=== PATIENT | male | born 1945 | race Hispanic/Latino ===

== ENCOUNTER 2019-11-25 11:46 | Inpatient (IN) | payer MEDICARE, OTHER ==
[2019-11-25] MEDS ORDERED: Nitroglycerin 2% Ointment 1 INCH/1 GM Packet ONE (12:02)
[2019-11-25] MEDS ORDERED: Heparin 10,000 UNITS/1 ML VIAL ONE ×2 (12:06→13:16)
[2019-11-25 12:12] LABS: #Eosinphils 0.2 thou/uL (0.0-0.7); #Lymphocytes 2.2 thou/uL (1.20-3.40); #Monocytes 0.6 thou/uL (0.11-0.59); #Neutrophils 4.6 thou/uL (1.40-6.50); %Basophils 0.6 % (0.0-1.0); %Eosinophils 2.1 % (0.0-10.0); %Monocytes 8.2 % (0.0-10.0); %Neutrophils 60.1 % (42.0-75.0); Hemoglobin 16.3 g/dL (14.0-18.0); Mean Corpuscular HGB CONC 33.3 g/dL (32.0-36.0); Mean Corpuscular Hemoglobin 30.5 pg (27.0-31.0); Mean Corpuscular Volume 91.6 fL (78.0-98.0); Mean Platelet Volume 9.2 fL (7.4-10.4); Platelet Count 182 thou/uL (130-400); RBC Distribution Width 13.2 % (11.5-14.5); Red Blood Cell (RBC) Count 5.34 mill/uL (4.70-6.10); White Blood Cell (WBC) Count 7.6 thou/uL (4.8-10.8)
[2019-11-25] MEDS ORDERED: Iopamidol 370 76% 50 ML VIAL FS ONE (12:21)
[2019-11-25] MEDS ORDERED: Iopamidol 370 76% 100 ML VIAL ONE (12:21)
[2019-11-25 12:30] LABS: ALT (SGPT) 23 U/L (8-55); AST (SGOT) 16 U/L (5-34); Albumin 4.4 g/dL (3.4-4.8); Alkaline Phosphatase 113 U/L (40-110); Anion Gap 17 mmol/L (10-20); BUN (Urea Nitrogen) 14 mg/dL (8.4-25.7); Bilirubin, Total 0.7 mg/dL (0.2-1.2); CK (CPK) 82 U/L (30-200); Calc. Creatinine Clearance 0 mL/min (70-130); Calcium 9.2 mg/dL (7.8-10.44); Carbon Dioxide 24 mmol/L (23-31); Chloride 105 mmol/L (98-107); Estimated GFR-MDRD 81; Globulin 3.3 g/dL (2.4-3.5); Glucose 101 mg/dL (83-110); INR-International Normal Ratio 0.9; Lipase 15 U/L (8-78); PTT 27.6 SEC (22.9-36.1); Potassium 3.5 mmol/L (3.5-5.1); Protein, Total 7.7 g/dL (5.8-8.1); Prothrombin Time 12.1 SEC (12.0-14.7); Sodium 142 mmol/L (136-145)
--- NOTE | 2019-11-25 12:39 | RAD ---
SINGLE VIEW CHEST: HISTORY: Chest pain that radiates to the back and left arm. FINDINGS: Single view of the chest show normal sized cardiomediastinal silhouette. There is no evidence of cons olidation, mass, or pleural effusion. The bones are unremarkable. IMPRESSION: No evidence of acute cardiopulmonary disease. POS: C
[2019-11-25] MEDS ORDERED: Clopidogrel Bisulfate 300 MG TAB ONE (12:50)
[2019-11-25] MEDS ORDERED: Aspirin Chewable 81 MG TAB ONE (13:24)
[2019-11-25] MEDS ORDERED: Sodium Chloride 0.9% 1,000 ML BAG ONE (13:24)
[2019-11-25] MEDS ORDERED: Nitroglycerin 50 MG/250 ML BOT ONE (13:24)
[2019-11-25] MEDS ORDERED: Tenecteplase 50 MG - STEMI KIT ONE (13:24)
[2019-11-25] MEDS ORDERED: Nitroglycerin 0.4 MG TAB (25 Tab Bottle) SL PRN (13:49)
[2019-11-25] MEDS ORDERED: Morphine 2 MG/ML SYRINGE SLOW IVP PRN (13:49)
[2019-11-25] MEDS ORDERED: Sodium Chloride 0.9% 1,000 ML IV SCH (13:49)
[2019-11-25] MEDS ORDERED: Aspirin 81 mg Enteric Coated Tablet PO SCH (14:00)
[2019-11-25 14:05] VITALS: BMI 33.7
--- NOTE | 2019-11-25 16:37 | CON ---
DATE OF CONSULTATION: HISTORY OF PRESENT ILLNESS: Ángel Perkins is a 74-year-old male , who denies any previous cardiac problems. He denies any previous chest discomfort. Today, he was driving and he had onset of central chest pressure and tightness approximately 1 hour prior to when I saw him in the emergency room. He came to the emergency room and was given sublingual nitroglycerin, 4000 of heparin and started on a heparin drip. He denies any shortness of breath, nausea, vomiting, or diaphoresis with this discomfort. PAST MEDICAL HISTORY: Hypertension and hypercholesterolemia. He states he was diagnosed with diabetes 1 year ago. He does not take any medications for any of these problems and states that he controls them all with diet. MEDICATIONS: Omeprazole 20 mg daily. ALLERGIES: ASPIRIN CAUSES NAUSEA AND DIAPHORESIS. IT DOES NOT SOUND IF HE HAS SHORTNESS OF BREATH OR HIVES, BUT THIS WILL BE FURTHER DISCUSSED WITH HIM. SOCIAL HISTORY: Smoked 3 packs per day, but stopped in 1993. He does not drink. FAMILY HISTORY: Father of myocardial infarction in his 60s. REVIEW OF SYSTEMS: A 12-point review of systems was unremarkable. PHYSICAL EXAMINATION: VITAL SIGNS: Blood pressure 159/90 and pulse of 80. HEENT: PERRL. NECK: Supple. CHEST: Clear. CARDIAC: S1 and S2 normal without any S3, S4, or murmurs. Carotid upstrokes normal without bruits. ABDOMEN: Normal bowel sounds without tenderness or organomegaly. EXTREMITIES: Revealed no clubbing, cyanosis, or edema. NEUROLOGIC: Grossly intact. SKIN: Warm and dry. IMAGING STUDIES: EKG revealed [address]-segment elevation in I and L consistent with lateral STEMI. LABORATORY DATA: CBC is normal. No other blood work is available. IMPRESSION: 1. High lateral ST-elevation myocardial infarction. 2. Hypertension, untreated. 3. Diabetes, untreated. 4. Hypercholesterolemia, untreated. 5. Former smoker. 6. Positive family history. PLAN: The situation was discussed with the patient. It was recommend he undergo emergent cardiac catheterization. Risks of this were discussed including , myocardial infarction, dye reaction, vascular injury, CVA, transfusion, limb loss, renal loss, etc. Also, risk of intervention with PTCA and stent placement were discussed including , myocardial infarction, emergent CABG, restenosis, stent thrombosis, vessel perforation, etc. He understands and agrees to proceed. He devyn any history of GI bleeding, CVA or upcoming surgeries. Drug eluting stent will be placed unless he has the need for CABG. ADDENDUM: Upon further discussion with him regarding his aspirin allergy, he received some type of combination medicine for pain after he broke his wrist in the . After taking that medicine, he became diaphoretic and states that he was shaking. However, he denies having any rash, hives, itching, or shortness of breath with that and I doubt that he has a true aspirin allergy. Job ID: [id number] [facility]
[2019-11-25 18:54] LABS: CKMB 126.1 ng/mL (0-6.6)
[2019-11-25] MEDS: Ondansetron PF 4 MG/2 ML Vial SLOW IVP PRN (19:26)
[2019-11-25] MEDS: Metoprolol Tartrate 25 MG TAB PO SCH (21:07)
[2019-11-26 00:29] LABS: Critical Call Chem Troponin I RESULT DECREASING
[2019-11-26 00:50] LABS: CKMB 88.9 ng/mL (0-6.6); Critical Call CKMB RESULT DECREASING
[2019-11-26] MEDS: Ondansetron PF 4 MG/2 ML Vial SLOW IVP PRN ×4 (01:16→20:46)
[2019-11-26 03:40] LABS: #Lymphocytes 0.7 thou/uL (1.20-3.40); #Monocytes 0.5 thou/uL (0.11-0.59); #Neutrophils 8.1 thou/uL (1.40-6.50); %Basophils 0.2 % (0.0-1.0); %Eosinophils 0.2 % (0.0-10.0); %Lymphocytes 7.3 % (21.0-51.0); %Monocytes 5.7 % (0.0-10.0); %Neutrophils 86.6 % (42.0-75.0); Hemoglobin 14.8 g/dL (14.0-18.0); Mean Corpuscular HGB CONC 33.3 g/dL (32.0-36.0); Mean Corpuscular Hemoglobin 30.2 pg (27.0-31.0); Mean Corpuscular Volume 90.7 fL (78.0-98.0); Mean Platelet Volume 8.8 fL (7.4-10.4); Platelet Count 173 thou/uL (130-400); RBC Distribution Width 12.9 % (11.5-14.5); White Blood Cell (WBC) Count 9.3 thou/uL (4.8-10.8)
[2019-11-26 03:47] LABS: Hemoglobin A1c 6.1 % (4.0-6.0)
[2019-11-26 04:00] LABS: ALT (SGPT) 33 U/L (8-55); AST (SGOT) 86 U/L (5-34); Albumin 3.8 g/dL (3.4-4.8); Alkaline Phosphatase 100 U/L (40-110); Anion Gap 12 mmol/L (10-20); BUN (Urea Nitrogen) 12 mg/dL (8.4-25.7); Bilirubin, Total 0.9 mg/dL (0.2-1.2); Calc. Creatinine Clearance 93 mL/min (70-130); Calcium 8.6 mg/dL (7.8-10.44); Carbon Dioxide 24 mmol/L (23-31); Cardiac Risk 5.1 (Less than 4.5); Chloride 106 mmol/L (98-107); Cholesterol 202 mg/dl (< 200 Desired); Estimated GFR-MDRD Greater than 90; Globulin 2.9 g/dL (2.4-3.5); Glucose 141 mg/dL (83-110); HDL Cholesterol 40 mg/dL (>60 Neg Risk); LDL Cholesterol, Calculated 142 mg/dL; Potassium 3.6 mmol/L (3.5-5.1); Protein, Total 6.7 g/dL (5.8-8.1); Sodium 138 mmol/L (136-145); Triglycerides 101 mg/dL (Less than 150)
[2019-11-26] MEDS ORDERED: Milk Of Magnesia 30 ML UDCUP PO PRN (08:31)
[2019-11-26] MEDS: Docusate 100 MG CAP PO SCH ×2 (08:44→20:06)
[2019-11-26] MEDS: Metoprolol Tartrate 25 MG TAB PO SCH ×2 (08:44→20:06)
[2019-11-26] MEDS ORDERED: Clopidogrel Bisulfate 75 MG TAB PO SCH (09:00)
[2019-11-26] MEDS ORDERED: Aspirin Chewable 81 MG TAB PO SCH (09:00)
[2019-11-26] MEDS ORDERED: Prevnar 13-Val Conj/PF 0.5 ML SYRINGE IM ONE (09:00)
[2019-11-26] MEDS ORDERED: Communication Order-Pharmacy FS ONE (11:18)
--- NOTE | 2019-11-26 12:42 | CON ---
DATE OF CONSULTATION: 11/26/2019 REQUESTING PHYSICIAN: Zion Fonseca MD CHIEF COMPLAINT: Chest pain. HISTORY OF PRESENT ILLNESS: The patient is a 74-year-old man who manages his hypertension and diabetes with dietary manipulations and supplements, such as garlic. He had onset of chest pressure in the center of his chest. He had a bit of shortness of breath when he presented to the emergency room. He had slight elevation in ST segments laterally, but a negative troponin. He was taken emergently to the cardiac incinerator plant laborer where he was found to have 3-vessel coronary artery disease, particularly severe in his left-sided system. He had a rather high trifurcated diagonal with a very high-grade lesion in it, that was deemed the culprit vessel and that was stented using a bare-metal stent. During the procedure, he was loaded with 600 mg of Plavix. He has not had any recurrence of chest pain since. PAST MEDICAL HISTORY: Significant for: 1. Hypertension. 2. Diabetes. 3. GE reflux. MEDICATIONS: His only home medication is Prilosec. ALLERGIES: HE HAS NO KNOWN ALLERGIES. HE INITIALLY DESCRIBED AN ASPIRIN ALLERGY, BUT ON FURTHER QUESTIONING, MANY YEARS AGO HE RECEIVED COMBINED FORMULATION THAT CONTAIN ASPIRIN AFTER A BROKEN WRIST, AND AFTERWARDS HE BECAME DIAPHORETIC AND HAD SOME SHAKING, BUT DID NOT HAVE ANY RASH, ITCHING, SHORTNESS OF BREATH, OR ANY WHEEZING. HE HAS SINCE BEEN ON BABY ASPIRIN IN THE HOSPITAL WITHOUT ANY ADVERSE EFFECT. SOCIAL HISTORY: The patient quit smoking in the mid 90s. While in the , he smoked up to 5 packs of cigarettes a day, and up until the time he quit, he smoked about 3 packs of cigarettes a day. FAMILY HISTORY: His father of heart attack in his mid 60s. His mother of heart attack in her mid 70s. REVIEW OF SYSTEMS: Negative for any shortness of breath. Negative for any eye, speech, facial, or extremity symptoms, consistent with TIAs. Negative for any claudication symptoms. Positive for paresthesias in his feet. PHYSICAL EXAMINATION: GENERAL: He is 5 feet 2 inches and weighs 184-1/4 pounds. In the emergency room at presentation, his heart rate was 90 and blood pressure was 179/110, and room air sats of 98%. Currently, his heart rates have mostly been in the 60 to 70 range, blood pressure of 110 to 125 over 65 to 75, T-max in this hospitalization has been 98.5, and his room air O2 sats currently are 97%. HEENT: He has no xanthelasma. No JVD. No carotid bruits. CHEST: Clear to auscultation. HEART: He has a regular rate and rhythm. ABDOMEN: Soft and nontender without any masses or bruits. VASCULAR: He has palpable radial, femoral, and posterior tibial pulses bilaterally. I was not able to appreciate dorsalis pedis pulses. He has some spider type varicosities and some venous stasis changes at the ankles. He has no clubbing, cyanosis, or edema. NEUROLOGIC: Grossly nonfocal. LABORATORY DATA: White count of 7.6, hemoglobin is 16.3, hematocrit 49.0, and platelets 182,000. PT was 12.1, INR 0.9, and PTT 27.6. His electrolytes were normal. Glucose 101, BUN 14, and creatinine 0.91. Hemoglobin A1c was 6.1. Calcium is 9.2, albumin 4.4, bilirubin 0.7, alkaline phosphatase was 113 and upper limit of normal being 110, AST was 16, and ALT was 23. Repeat LFTs, he had a bilirubin 0.9, alkaline phosphatase of 100, AST of 86, and ALT of 33. Fasting lipids were triglycerides 101, cholesterol of 202, LDL 142, HDL of 40. His troponin initially was undetectable, about 5 hours after his stenting, his troponin is 48.618 and about 6 hours after that was 23.588. His chest x-ray shows some slightly prominent markings with either some vessels on and/or granulomata. His EKG showed minimal ST elevation laterally and he had some inferior ST depression. He developed inverted T-waves in the precordial leads. His cardiac catheterization shows a right-dominant system. He has 2 diagonals that come off prior to the first septal haul driver. The second diagonal was the trifurcated vessel that was stented. All three branches are relatively small, although the stented segment is reasonably good size. There are 2 septal perforators after that and starting at about the first septal haul driver, there was an area of irregularity with significant disease in one of the injections. During the stenting procedure, it appears to come down to perhaps around 90% lesion in a little bit beyond the 2nd septal haul driver. There are hang up of dye that is slow to clear in the LAD. There is about 95% or greater lesion in a large 2nd obtuse marginal, and there is serial 50 or even 60% lesions in the proximal mid and distal right coronary. LVEF is around 50% or 60%. LV pressure was 99/10 with an EDP of 16. Aortic pressure on pullback was 110/61 with a mean of 83. IMPRESSION AND RECOMMENDATIONS: Anatomically, my biggest concern is the severity of disease in the 2nd obtuse marginal and in the left anterior descending, particularly given the slow clearance of dye in the left anterior descending beyond its lesion and it may be problematic trying to keep him medically stable for the typical month or 2 that we would wait after bare-metal stenting so that we could do his procedure off Plavix. Additionally, there is an issue about this patient's reluctance to take medications and his reliability, putting that in the context of our current pandemic constraints, there is considerable concern that he will be lost to follow up and wind up having a more serious MO in his left anterior descending or circumflex distributions. We will plan on coronary artery bypass grafting and anticipate transfusing platelets to achieve hemostasis post pump run. Job ID: [id number]
[2019-11-26] MEDS ORDERED: Atorvastatin Calcium 40 MG TAB PO SCH (21:00)
[2019-11-27] MEDS: Metoprolol Tartrate 25 MG TAB PO SCH (05:57)
[2019-11-27] MEDS ORDERED: Fentanyl 250 MCG/5 ML VIAL ONE (06:12)
[2019-11-27] MEDS ORDERED: Midazolam HCl 5 mg/5 ml Vial ONE (06:13)
[2019-11-27] MEDS ORDERED: Albumin 5% 500 ML ONE (06:30)
[2019-11-27] MEDS ORDERED: CEFAZOLIN 2 GM in Premix Bag 1 BAG IVPB SCH (07:15)
[2019-11-27] MEDS ORDERED: Heparin 10,000 UNITS/1 ML VIAL 30,000 UNITS in Sodium Chloride 0.9% 1,000 ML FS SCH (07:30)
[2019-11-27] MEDS ORDERED: hydrALAZINE 20 MG/ML VIAL SLOW IVP PRN (07:34)
[2019-11-27] MEDS ORDERED: Post-Op Insulin Drip Protocol IVPB SCH (07:34)
[2019-11-27] MEDS ORDERED: Hetastarch 6% 500 ML 500 ML IVPB PRN (07:34)
[2019-11-27] MEDS ORDERED: Promethazine HCl 25 MG/ML VIAL IM PRN (07:34)
[2019-11-27] MEDS ORDERED: Bisacodyl 5 MG TAB PO PRN (07:34)
[2019-11-27] MEDS ORDERED: Guaifenesin DM 100-10/5 ML UDCUP PO PRN (07:34)
[2019-11-27] MEDS ORDERED: HYDROcodone/Acetaminophen 5/325 mg Tablet PO PRN (07:34)
[2019-11-27] MEDS ORDERED: Ondansetron PF 4 MG/2 ML Vial IVP PRN (07:34)
[2019-11-27] MEDS ORDERED: Mag-Al 1200 mg/1200 mg/30 ML UDCUP PO PRN (07:34)
[2019-11-27] MEDS ORDERED: Acetaminophen 325 MG TAB PO PRN (07:34)
[2019-11-27] MEDS ORDERED: Bisacodyl 10 MG SUPP PR PRN (07:34)
[2019-11-27] MEDS ORDERED: niCARdipine 25 MG in Sodium Chloride 0.9% 250 ML 240 ML IVPB PRN (07:34)
[2019-11-27] MEDS ORDERED: Norepinephrine 8 MG/0.9% NS 250 ML IVPB PRN (07:34)
[2019-11-27] MEDS ORDERED: Morphine 2 MG/ML SYRINGE SLOW IVP PRN (07:34)
[2019-11-27] MEDS ORDERED: Nitroglycerin 50 MG/250 ML BOT 250 ML IVPB PRN (07:34)
[2019-11-27] MEDS ORDERED: Fentanyl 100 MCG/2 ML VIAL SLOW IVP PRN ×2 (07:34)
[2019-11-27] MEDS: Sodium Chloride 0.9% 1,000 ML IV SCH ×2 (07:52→12:24)
[2019-11-27] MEDS: Famotidine/PF 20 mg/2ml Vial SLOW IVP SCH ×2 (07:53→19:47)
[2019-11-27] MEDS ORDERED: PHENYLEPHRINE-NS 100 MCG/ML 10 ML SYRINGE ONE ×2 (09:38→11:57)
[2019-11-27] MEDS ORDERED: CEFAZOLIN 1 GM VIAL ONE (09:56)
[2019-11-27] MEDS ORDERED: Aminocaproic Acid 5 GM/20 ML VIAL ONE (11:57)
[2019-11-27] MEDS ORDERED: Papaverine 60 MG/2 ML VIAL ONE (11:57)
[2019-11-27] MEDS ORDERED: PROPOFOL 200 MG/20 ML VIAL ONE (11:57)
[2019-11-27] MEDS ORDERED: Rocuronium Bromide 10 MG/ML (10ML VIAL) ONE (11:57)
[2019-11-27] MEDS ORDERED: Heparin 30,000 units/30 ml VIAL ONE (11:57)
[2019-11-27] MEDS ORDERED: Sodium Bicarb 50 MEQ/50 ML Abboject 8.4% SYRINGE ONE (11:57)
[2019-11-27] MEDS ORDERED: Lidocaine 2% PF 5 ML VIAL ONE (11:57)
[2019-11-27] MEDS ORDERED: Cardioplegic Soln 1,000 ML BAG ONE (11:57)
[2019-11-27] MEDS ORDERED: Protamine Sulfate 250 MG/25 ML VIAL ONE (11:57)
[2019-11-27] MEDS ORDERED: Thrombin 5000 UNITS/5 ML VIAL ONE (11:57)
[2019-11-27] MEDS ORDERED: Potassium Chloride 60 MEQ/30 ML VIAL ONE (11:57)
[2019-11-27] MEDS ORDERED: Calcium Chloride 1 GM/10 ML Abboject SYRINGE ONE (11:57)
[2019-11-27] MEDS ORDERED: Magnesium Sulfate 1 GM/2 ML VIAL ONE (11:57)
[2019-11-27] MEDS ORDERED: Heparin 5,000 UNITS/ML VIAL ONE (11:57)
[2019-11-27] MEDS ORDERED: Vecuronium 10 MG VIAL ONE (11:57)
[2019-11-27] MEDS ORDERED: HUMULIN R 100 UNITS in Sodium Chloride 0.9% 100 ML IVPB SCH (12:04)
[2019-11-27] MEDS ORDERED: Insulin Regular 300 UNITS/3 ML VIAL SC PRN (12:04)
[2019-11-27] MEDS ORDERED: Dextrose 5% in Water 1,000 ML IV PRN (12:04)
[2019-11-27] MEDS ORDERED: Dextrose 50% Abboject 50 ML SYRINGE SLOW IVP PRN (12:04)
[2019-11-27] MEDS: Ketorolac Tromethamine 30 MG/ML VIAL IVP SCH ×2 (12:22→18:13)
[2019-11-27 12:28] LABS: #Eosinphils 0.1 thou/uL (0.0-0.7); #Lymphocytes 0.7 thou/uL (1.20-3.40); #Monocytes 1.1 thou/uL (0.11-0.59); %Basophils 0.1 % (0.0-1.0); %Eosinophils 0.7 % (0.0-10.0); %Lymphocytes 4.2 % (21.0-51.0); %Monocytes 6.7 % (0.0-10.0); %Neutrophils 88.2 % (42.0-75.0); Hemoglobin 11.4 g/dL (14.0-18.0); Mean Corpuscular Hemoglobin 30.5 pg (27.0-31.0); Mean Corpuscular Volume 92.4 fL (78.0-98.0); Mean Platelet Volume 8.4 fL (7.4-10.4); Platelet Count 127 thou/uL (130-400); RBC Distribution Width 12.9 % (11.5-14.5); Red Blood Cell (RBC) Count 3.73 mill/uL (4.70-6.10); White Blood Cell (WBC) Count 17.1 thou/uL (4.8-10.8)
[2019-11-27 12:32] LABS: INR-International Normal Ratio 1.4; PTT 27.9 SEC (22.9-36.1); Prothrombin Time 16.9 SEC (12.0-14.7)
[2019-11-27 12:39] LABS: Actual Bicarbonate (HCO3a) 22.5 mEq/L (22-28); Base Excess (BEa) -2.3 mEq/L (-2.0 to +3.0); CO2 Tension 38.6 mmHg (35.0-45.0); Calcium, Ionized 1.08 mmol/L (1.12-1.30); Carboxyhemoglobin (COHb) 0.5 gm% (0.0-3.0); O2 Tension (PaO2) 88.5 mmHg (> 70.0); Potassium - ABG Lab 3.21 mmol/L (3.70-5.30); pH, Arterial 7.38 (7.35-7.45)
[2019-11-27 12:40] LABS: Puncture Site ART LINE
[2019-11-27 12:47] LABS: Anion Gap 9 mmol/L (10-20); BUN (Urea Nitrogen) 15 mg/dL (8.4-25.7); Calc. Creatinine Clearance 89 mL/min (70-130); Calcium 7.2 mg/dL (7.8-10.44); Carbon Dioxide 23 mmol/L (23-31); Chloride 113 mmol/L (98-107); Estimated GFR-MDRD Greater than 90; Glucose 163 mg/dL (83-110); Potassium 3.4 mmol/L (3.5-5.1); Sodium 142 mmol/L (136-145)
[2019-11-27] MEDS ORDERED: Norepinephrine 8 MG in Dextrose 5% in Water 242 ML IVPB PRN (12:47)
[2019-11-27 12:51] LABS: Potassium 3.4 mmol/L (3.5-5.1)
[2019-11-27] MEDS: Potassium Chloride 20 MEQ/100 ML PREMIX BAG IVPB PRN (12:57)
--- NOTE | 2019-11-27 13:18 | RAD ---
PORTABLE CHEST: Date: 11/27/2019 PROVIDED CLINICAL HISTORY: Post open heart. FINDINGS: Comparison with 11/25/2019. Interval median sternotomy change, left subclavian central line, mediastinal drains, and left-sided c hest tube. Cardiac and mediastinal silhouette unchanged in appearance. Presumed endotracheal tube, th e tip of which approximates the isaiah. Subsegmental atelectatic changes are seen involving the lung parenchyma. The supine nature of this study is not sensitive for detection of pleural fluid or pneumo thorax, without evidence for such. IMPRESSION: Support apparatus as described. Repositioning of the ET tube is recommended. POS: [facility]
--- NOTE | 2019-11-27 13:27 | OP ---
DATE OF PROCEDURE: 11/27/2019 PROCEDURE PERFORMED: Coronary artery bypass grafting x3 with left internal mammary artery to the distal left anterior descending and reverse greater saphenous vein graft from the aorta to the obtuse marginal 2 and from the aorta to the posterolateral branch of the right coronary artery. PREOPERATIVE DIAGNOSIS: Coronary artery disease, status post bare-metal stenting for lateral ST-elevation myocardial infarction. POSTOPERATIVE DIAGNOSIS: Coronary artery disease, status post bare-metal stenting for lateral ST-elevation myocardial infarction. BALLING HEAD TENDER: Savage Abebe MD ANESTHESIA: General endotracheal anesthesia. INDICATIONS: The patient is a 74-year-old man who presented with midsternal chest pain and had lateral ST elevation on his EKG. He was taken emergently to the mill laborer and a culprit high diagonal was stented using a bare metal stent because of the severity of his residual disease in his LAD and his circumflex system. It is opted to proceed with surgical revascularization during this hospitalization. FINDINGS: Pump time 72 minutes. Cross-clamp time 41 minutes. Good quality SHEELA and saphenous vein. All the coronaries were thick-walled and diffusely involved with leathery plaque. The LAD was 2 to 2.5 mm. The obtuse marginal was 2 to 2.5 mm. Posterolateral branch of the RCA was 1.5 to 2 mm. The pericardium was closed. DESCRIPTION OF PROCEDURE: After informed consent was obtained, the patient was taken to the operating room, placed in supine position on the operating table. After the induction of general anesthesia, the patient's left greater saphenous vein was ultrasonographically mapped and marked. He was placed in Trendelenburg and his left upper chest was prepped and draped in sterile fashion. A triple-lumen central line kit was used to place a left subclavian central line by the Seldinger technique. All 3 ports easily aspirated and flushed. The line was secured with suture. The patient's torso, groins, and lower extremities were prepped and draped in sterile fashion. The left greater saphenous vein was exposed through a small incision just above the knee using that as the port site. The patient's vein was endoscopically harvested from groin to about a handbreadth below the knee and prepared for use as a graft. The port site was closed in layers of subcutaneous and subcuticular Vicryl. The stab incisions were proximally and distally for ligation and division ultimately were dressed simply with Dermabond. A median sternotomy was performed. The left internal mammary artery was harvested as a skeletonized in-situ graft from the level of the xiphoid to the level of the subclavian vein unsuccessfully attempting an extrapleural exposure. Small rents amenable to repair were created inferiorly, but there was a large rent apically that was not amenable to repair. The patient was heparinized and the mammary was ligated and divided distally. There was good flow through the mammary and distended nicely when instilled intraluminally with papaverine solution. The mammary bed was inspected for hemostasis. The medial reflections of the pleura were mobilized. The SHEELA retractor was replaced with a Kraus retractor. The pericardium was opened and marsupialized. The aorta was palpated and was soft. A double concentric pursestring of 2-0 Ethibond was placed in ascending aorta just within the pericardial reflection and a single pursestring was placed in the right atrial appendage. Aortic and venous cannulae were inserted and secured by their pursestrings. There was some difficulty in cannulating using our standard 24-Citizen [place] cannula with an angled tip. An 18-Citizen [place] femoral arterial cannula was used instead. It proved to be due to the aortic wall being relatively thick, even though it was soft. Cardiopulmonary bypass was instituted and the patient was systemically cooled. The heart was examined and the vessels to be bypassed were identified. A longitudinal slit was made in the pericardium anterior to the left phrenic nerve, so mammary could be passed and hilar mobilization of the pericardium of the pleura to mimic an extrapleural exposure of the mammary was completed. The plane between the aorta and the pulmonary artery was developed. Cardiopulmonary bypass was instituted and the patient was systemically cooled. The heart was examined. The vessels to be bypassed were identified. An aortic cross-clamp was applied and cardioplegia was administered through an aortic root needle. When arrest have been achieved, attention was turned to the circumflex system. The second obtuse marginal was exposed and opened with a Mcneal blade and Diethrich scissors. Saphenous vein was reversed and anastomosed end-to-side with running 6-0 Prolene suture and the anastomosis tested by flushing cold cardioplegia down the graft. Attention was then turned to the right coronary. It was extensively explored and rather distally out on the posterolateral branch, where a transition to relatively good quality vessel was identified. The vessel was opened. Saphenous vein was anastomosed there end-to-side with running Prolene. Prior to securing the suture line, the toe of the anastomosis was probed with 1.5 mm probe, which passed easily. The LAD was then opened distally and the mammary was anastomosed to it with running 7-0 Prolene and tacked to the epicardium. The aortic cross-clamp was replaced with a partial occluding clamp. The aortotomies were then made in the ascending aorta with a scalpel and punch incorporating the root needle site for one of these aortotomies. It was at this point that the thickness of the aorta was appreciated. The right coronary system graft was anastomosed to the more proximal aortotomy and the OM graft to the more distal aortotomy. The partial occluding clamp was removed and the vein grafts were de-aired. The bulldogs were removed from them. The anastomoses were inspected for hemostasis. The proximal anastomoses were marked with small hemoclips. Left pleural and posterior pericardial drains were brought out through separate incisions and secured with suture. Right atrial and right ventricular temporary epicardial pacing wires were placed. The patient was then easily from cardiopulmonary bypass. Aortic and venous cannulae were removed and the pursestring secured. Protamine and platelets were administered to achieve hemostasis and when hemostasis was adequate, an anterior mediastinal drain was placed. The pericardium was easily closed over it with running Vicryl. The rent in the apical portion of the pleura was tacked together to insulate the mammary from the left lung. The cut surfaces of the sternum were treated with vancomycin paste and platelet-rich GPS. The sternum was reapproximated with #7 stainless steel wires. Fascia was closed over the wires with heavy Vicryl after irrigating the soft tissues and treating it with platelet poor GPS. Subcutaneous tissue was reapproximated with running 2-0 Vicryl, and the skin was closed with a running 3-0 Vicryl subcuticular suture. The wounds were treated with Dermabond and dressed and the patient was taken to the intensive care unit in stable condition. Job ID: [id number]
[2019-11-27 16:02] LABS: Base Excess (BEa) -1.9 mEq/L (-2.0 to +3.0); CO2 Tension 39.7 mmHg (35.0-45.0); Calcium, Ionized 1.07 mmol/L (1.12-1.30); Carboxyhemoglobin (COHb) 0.9 gm% (0.0-3.0); Hemoglobin (Hb) 11.9 g/dL (14.0-18.0); O2 Tension (PaO2) 91.2 mmHg (> 70.0); pH, Arterial 7.38 (7.35-7.45)
[2019-11-27 16:03] LABS: ALV-art Gradient 144.375 (0-20); Puncture Site ART LINE
[2019-11-27 18:40] LABS: Hemoglobin 11.2 g/dL (14.0-18.0)
[2019-11-27 18:56] LABS: Potassium 4.1 mmol/L (3.5-5.1)
[2019-11-28] MEDS: Ketorolac Tromethamine 30 MG/ML VIAL IVP SCH ×2 (00:21→05:45)
[2019-11-28] MEDS: Sodium Chloride 0.9% 1,000 ML IV SCH ×2 (00:30→12:51)
[2019-11-28 04:13] LABS: #Monocytes 1.3 thou/uL (0.11-0.59); #Neutrophils 8.8 thou/uL (1.40-6.50); %Basophils 0.4 % (0.0-1.0); %Eosinophils 0.1 % (0.0-10.0); %Monocytes 11.8 % (0.0-10.0); %Neutrophils 78.8 % (42.0-75.0); Hemoglobin 10.5 g/dL (14.0-18.0); Mean Corpuscular HGB CONC 33.8 g/dL (32.0-36.0); Mean Corpuscular Hemoglobin 30.9 pg (27.0-31.0); Mean Corpuscular Volume 91.4 fL (78.0-98.0); Mean Platelet Volume 8.9 fL (7.4-10.4); Platelet Count 141 thou/uL (130-400); RBC Distribution Width 12.9 % (11.5-14.5); Red Blood Cell (RBC) Count 3.38 mill/uL (4.70-6.10); White Blood Cell (WBC) Count 11.2 thou/uL (4.8-10.8)
[2019-11-28 04:32] LABS: Anion Gap 11 mmol/L (10-20); BUN (Urea Nitrogen) 18 mg/dL (8.4-25.7); Calc. Creatinine Clearance 85 mL/min (70-130); Calcium 7.5 mg/dL (7.8-10.44); Carbon Dioxide 25 mmol/L (23-31); Chloride 113 mmol/L (98-107); Estimated GFR-MDRD Greater than 90; Glucose 113 mg/dL (83-110); Potassium 3.6 mmol/L (3.5-5.1); Sodium 145 mmol/L (136-145)
[2019-11-28] MEDS: Potassium Chloride 20 MEQ/100 ML PREMIX BAG IVPB PRN (07:10)
--- NOTE | 2019-11-28 07:29 | RAD ---
SINGLE VIEW CHEST: Date: 11/28/2019 COMPARISON: 11/27/2019. HISTORY: Status post open heart surgery. FINDINGS: Single view of the chest shows an enlarged but stable cardiomediastinal silhouette. The patient is st atus post sternotomy. The endotracheal tube has been removed. The other lines and tubes are unchanged in position. No pneumothorax is seen. There is blunting of the left costophrenic angle which may rep resent a small left pleural effusion. IMPRESSION: Stable exam status post extubation. POS: [facility]
[2019-11-28] MEDS: HYDROcodone/Acetaminophen 5/325 mg Tablet PO PRN ×3 (08:21→20:29)
[2019-11-28] MEDS: Famotidine/PF 20 mg/2ml Vial SLOW IVP SCH (09:06)
[2019-11-28] MEDS ORDERED: Dextrose 50% Abboject 50 ML SYRINGE SLOW IVP PRN (09:30)
[2019-11-28] MEDS ORDERED: Dextrose 5% in Water 1,000 ML IV PRN (09:30)
[2019-11-28] MEDS ORDERED: Insulin Regular 300 UNITS/3 ML VIAL SC PRN (09:30)
[2019-11-28] MEDS ORDERED: Artificial Tears 18 DROP/0.9 ML EA EYE PRN (11:02)
[2019-11-28] MEDS ORDERED: Nitroglycerin 0.4 MG TAB (25 Tab Bottle) SL PRN (11:02)
[2019-11-28] MEDS ORDERED: Guaifenesin DM 100-10/5 ML UDCUP PO PRN (11:02)
[2019-11-28] MEDS ORDERED: Bisacodyl 10 MG SUPP PR PRN (11:02)
[2019-11-28] MEDS ORDERED: Zolpidem Tartrate 5 MG TAB PO PRN (11:02)
[2019-11-28] MEDS ORDERED: Mineral Oil ENEMA PR PRN (11:02)
[2019-11-28] MEDS ORDERED: Mag-Al 1200 mg/1200 mg/30 ML UDCUP PO PRN (11:02)
[2019-11-28] MEDS ORDERED: diphenhydrAMINE 25 MG CAP PO PRN (11:02)
[2019-11-28] MEDS: Metoclopramide HCl 10 MG/2 ML VIAL IVP SCH ×2 (12:51→18:03)
[2019-11-28] MEDS ORDERED: Amiodarone 150 MG, Admixture Fee 1 EACH in Dextrose 5% in Water 100 ML IVPB SCH (20:30)
[2019-11-28] MEDS: Atorvastatin Calcium 40 MG TAB PO SCH (20:30)
[2019-11-28] MEDS: Famotidine 20 MG TAB PO SCH (20:30)
[2019-11-28] MEDS: Amiodarone 450 MG, Admixture Fee 1 EACH in Dextrose 5% in Water 250 ML IVPB SCH (20:57)
[2019-11-28 21:04] LABS: ALT (SGPT) 20 U/L (8-55); AST (SGOT) 30 U/L (5-34); Albumin 3.4 g/dL (3.4-4.8); Alkaline Phosphatase 58 U/L (40-110); Bilirubin, Direct 0.5 mg/dL (0.1-0.3); Protein, Total 5.4 g/dL (5.8-8.1)
[2019-11-29] MEDS: Metoclopramide HCl 10 MG/2 ML VIAL IVP SCH ×4 (00:17→16:55)
[2019-11-29] MEDS: Sodium Chloride 0.9% 1,000 ML IV SCH (00:17)
[2019-11-29] MEDS: Amiodarone 450 MG, Admixture Fee 1 EACH in Dextrose 5% in Water 250 ML IVPB SCH ×2 (04:08→19:47)
[2019-11-29 04:58] LABS: #Lymphocytes 0.7 thou/uL (1.20-3.40); #Monocytes 1.1 thou/uL (0.11-0.59); #Neutrophils 12.3 thou/uL (1.40-6.50); %Basophils 0.1 % (0.0-1.0); %Eosinophils 0.1 % (0.0-10.0); %Lymphocytes 4.7 % (21.0-51.0); %Monocytes 7.9 % (0.0-10.0); %Neutrophils 87.2 % (42.0-75.0); Hemoglobin 9.9 g/dL (14.0-18.0); Mean Corpuscular HGB CONC 33.6 g/dL (32.0-36.0); Mean Corpuscular Hemoglobin 31.4 pg (27.0-31.0); Mean Corpuscular Volume 93.5 fL (78.0-98.0); Mean Platelet Volume 8.7 fL (7.4-10.4); Platelet Count 134 thou/uL (130-400); Red Blood Cell (RBC) Count 3.13 mill/uL (4.70-6.10); White Blood Cell (WBC) Count 14.1 thou/uL (4.8-10.8)
[2019-11-29 05:26] LABS: Anion Gap 12 mmol/L (10-20); BUN (Urea Nitrogen) 18 mg/dL (8.4-25.7); Calc. Creatinine Clearance 93 mL/min (70-130); Calcium 7.7 mg/dL (7.8-10.44); Carbon Dioxide 23 mmol/L (23-31); Chloride 108 mmol/L (98-107); Estimated GFR-MDRD Greater than 90; Glucose 145 mg/dL (83-110); Potassium 3.5 mmol/L (3.5-5.1); Sodium 139 mmol/L (136-145)
[2019-11-29] MEDS ORDERED: Metolazone 5 MG TAB PO SCH ×3 (07:15→10:00)
[2019-11-29] MEDS ORDERED: Metoprolol Tartrate 5 MG/5 ML VIAL IVP SCH (07:15)
[2019-11-29] MEDS ORDERED: Digoxin 0.5 MG/2 ML AMP SLOW IVP SCH ×4 (07:15→19:30)
--- NOTE | 2019-11-29 08:49 | RAD ---
PORTABLE CHEST 1 VIEW: DATE: 11/29/2019. TIME: 5:32 AM. HISTORY: Post CABG. FINDINGS: There has been interval removal of the left-sided chest tubes since the previous day's exam. The rem ainder of the exam is otherwise unchanged. POS: [facility]
[2019-11-29] MEDS: Famotidine 20 MG TAB PO SCH ×2 (09:32→19:40)
[2019-11-29] MEDS: Furosemide 40 MG/4 ML VIAL SLOW IVP SCH ×2 (10:40→15:43)
[2019-11-29] MEDS: Metoprolol Tartrate 25 MG TAB PO SCH ×2 (10:43→19:41)
--- NOTE | 2019-11-29 14:27 | EKG ---
Test Reason : POST CABG Blood Pressure : / mmHG Vent. Rate : 073 BPM Atrial Rate : 073 BPM P-R Int : 166 ms QRS Dur : 084 ms QT Int : 446 ms P-R-T Axes : 054 048 162 degrees QTc Int : 491 ms Normal sinus rhythm Prolonged QT Abnormal ECG Confirmed by SID HAYWOOD ([id number]) on 11/29/2019 2:27:31 PM Referred By: RUY Confirmed By:SID HAYWOOD
[2019-11-29] MEDS ORDERED: Amiodarone 150 MG, Admixture Fee 1 EACH in Dextrose 5% in Water 100 ML IVPB SCH (15:15)
[2019-11-29] MEDS ORDERED: DEXTROSE IVPB SCH (16:00)
[2019-11-29] MEDS ORDERED: ADMIXTURE FEE IVPB SCH (16:00)
[2019-11-29] MEDS ORDERED: WATER IVPB SCH (16:00)
[2019-11-29] MEDS ORDERED: AMIODARONE IVPB SCH (16:00)
[2019-11-29] MEDS: HYDROcodone/Acetaminophen 5/325 mg Tablet PO PRN (19:38)
[2019-11-29] MEDS: Atorvastatin Calcium 40 MG TAB PO SCH (19:41)
[2019-11-30] MEDS: Metoclopramide HCl 10 MG/2 ML VIAL IVP SCH ×2 (00:08→05:22)
[2019-11-30] MEDS ORDERED: Digoxin 0.5 MG/2 ML AMP SLOW IVP SCH (04:00)
[2019-11-30 05:07] LABS: Anion Gap 12 mmol/L (10-20); BUN (Urea Nitrogen) 18 mg/dL (8.4-25.7); Calc. Creatinine Clearance 86 mL/min (70-130); Calcium 8.3 mg/dL (7.8-10.44); Carbon Dioxide 31 mmol/L (23-31); Chloride 97 mmol/L (98-107); Estimated GFR-MDRD 84; Glucose 120 mg/dL (83-110); Potassium 3.2 mmol/L (3.5-5.1); Sodium 137 mmol/L (136-145)
[2019-11-30 05:43] LABS: Band 4 % (5-11); Hemoglobin 9.9 g/dL (14.0-18.0); Lymphocytes 17 % (21-51); MDiff Complete? YES; Mean Corpuscular HGB CONC 33.2 g/dL (32.0-36.0); Mean Corpuscular Hemoglobin 30.5 pg (27.0-31.0); Mean Platelet Volume 9.4 fL (7.4-10.4); Monocytes 7 % (0-10); Neutrophil 72 % (42-75); Platelet Count 157 thou/uL (130-400); Red Blood Cell (RBC) Count 3.23 mill/uL (4.70-6.10); White Blood Cell (WBC) Count 14.1 thou/uL (4.8-10.8)
--- NOTE | 2019-11-30 07:38 | RAD ---
Exam: Chest one view HISTORY:Status post CABG Comparison: 11/29/2019 FINDINGS: Lines and tubes: Stable left-sided vascular catheter. Stable sternotomy wires. Cardiac silhouette:Mild cardiomegaly Aorta: Unremarkable Pulmonary vessels: Normal Costophrenic angles: Trace left-sided pleural effusion LUNGS: Improved aeration of the lung parenchyma. Minimal residual interstitial opacities do remain. Pneumothorax: None Osseous abnormalities: None IMPRESSION: Findings compatible with recent open heart surgery.
--- NOTE | 2019-11-30 07:39 | EKG ---
Test Reason : Blood Pressure : / mmHG Vent. Rate : 076 BPM Atrial Rate : 076 BPM P-R Int : 170 ms QRS Dur : 082 ms QT Int : 352 ms P-R-T Axes : 051 029 -27 degrees QTc Int : 396 ms Normal sinus rhythm Nonspecific T wave abnormality Abnormal ECG No previous ECGs available Confirmed by HEAVENLY ADDISON MD ([id number]) on 11/30/2019 7:38:55 AM Referred By: CARIE Confirmed By:HEAVENLY ADDISON MD
--- NOTE | 2019-11-30 07:39 | EKG ---
Test Reason : Blood Pressure : / mmHG Vent. Rate : 066 BPM Atrial Rate : 066 BPM P-R Int : 178 ms QRS Dur : 080 ms QT Int : 428 ms P-R-T Axes : 063 064 222 degrees QTc Int : 448 ms Normal sinus rhythm Abnormal ECG When compared with ECG of 25-NOV-2019 14:07, (Unconfirmed) Inverted T waves have replaced nonspecific T wave abnormality in Anterolateral leads Confirmed by CYN ANGUIANO, HEAVENLY ([id number]) on 11/30/2019 7:39:14 AM Referred By: CARIE Confirmed By:HEAVENLY ADDISON MD
[2019-11-30] MEDS: Amiodarone 200 MG TAB PO SCH ×2 (08:04→20:16)
[2019-11-30] MEDS: Famotidine 20 MG TAB PO SCH (08:05)
[2019-11-30] MEDS: Metoprolol Tartrate 25 MG TAB PO SCH ×2 (08:05→20:16)
--- NOTE | 2019-11-30 14:20 | RAD ---
ABDOMEN 1 VIEW: Date: 11/30/2019 HISTORY: Nausea. FINDINGS/IMPRESSION: A nonspecific bowel gas pattern is seen with air in loops of colon. There is fecal material in the as cending colon. There are degenerative changes in the spine. POS: [facility]
[2019-11-30 14:25] LABS: Analyzer IN Cardio OR; Base Excess (BEa) -1.7 mEq/L (-2.0 to +3.0); CO2 Tension 38.2 mmHg (35.0-45.0); Calcium, Ionized 0.99 mmol/L (1.12-1.30); Carboxyhemoglobin (COHb) 0.8 gm% (0.0-3.0); Hemoglobin (Hb) 8.1 g/dL (14.0-18.0); Potassium - ABG Lab 3.58 mmol/L (3.70-5.30)
[2019-11-30 14:30] LABS: Actual Bicarbonate (HCO3v) 27 mEq/L (22-28); Analyzer IN Cardio OR; Calcium, Ionized 0.95 mmol/L (1.16-1.32); Chloride (ABG LAB) 109 mmol/L (98-106); Hemoglobin (Hb) 8.7 g/dL (12.6-17.4); Potassium - ABG Lab 4.02 mmol/L (3.70-5.30); Sodium 136.9 mmol/L (133-146); pH (venous) 7.37 (7.32-7.43)
[2019-11-30 14:32] LABS: Actual Bicarbonate (HCO3a) 25.8 mEq/L (22-28); Analyzer IN Cardio OR; Base Excess (BEa) 0.9 mEq/L (-2.0 to +3.0); CO2 Tension 42.5 mmHg (35.0-45.0); Calcium, Ionized 0.93 mmol/L (1.12-1.30); Carboxyhemoglobin (COHb) 0.6 gm% (0.0-3.0); Hemoglobin (Hb) 8.5 g/dL (14.0-18.0); O2 Tension (PaO2) 386.6 mmHg (> 70.0); Potassium - ABG Lab 3.91 mmol/L (3.70-5.30)
[2019-11-30 14:32] LABS: Actual Bicarbonate (HCO3a) 25.3 mEq/L (22-28); Analyzer IN Cardio OR; Base Excess (BEa) 2.1 mEq/L (-2.0 to +3.0); CO2 Tension 33.6 mmHg (35.0-45.0); Calcium, Ionized 0.91 mmol/L (1.12-1.30); Carboxyhemoglobin (COHb) 0.6 gm% (0.0-3.0); Hemoglobin (Hb) 7.9 g/dL (14.0-18.0); O2 Tension (PaO2) 384.3 mmHg (> 70.0); Potassium - ABG Lab 4.29 mmol/L (3.70-5.30)
[2019-11-30 14:33] LABS: Actual Bicarbonate (HCO3a) 23.9 mEq/L (22-28); Analyzer IN Cardio OR; CO2 Tension 33.1 mmHg (35.0-45.0); Calcium, Ionized 1.09 mmol/L (1.12-1.30); Carboxyhemoglobin (COHb) 1.3 gm% (0.0-3.0); Hemoglobin (Hb) 13.1 g/dL (14.0-18.0); O2 Tension (PaO2) 136.4 mmHg (> 70.0); Potassium - ABG Lab 3.27 mmol/L (3.70-5.30); Puncture Site ALINE; pH, Arterial 7.48 (7.35-7.45)
[2019-11-30 14:33] LABS: Actual Bicarbonate (HCO3a) 22.9 mEq/L (22-28); Analyzer IN Cardio OR; Base Excess (BEa) -1.1 mEq/L (-2.0 to +3.0); Calcium, Ionized 1.03 mmol/L (1.12-1.30); Carboxyhemoglobin (COHb) 0.4 gm% (0.0-3.0); Hemoglobin (Hb) 11.7 g/dL (14.0-18.0); O2 Tension (PaO2) 175.1 mmHg (> 70.0); Potassium - ABG Lab 3.38 mmol/L (3.70-5.30); pH, Arterial 7.42 (7.35-7.45)
[2019-11-30] MEDS ORDERED: Aspirin Chewable 81 MG TAB PO SCH (14:45)
[2019-11-30] MEDS: Atorvastatin Calcium 40 MG TAB PO SCH (20:16)
[2019-12-01 04:59] LABS: #Eosinphils 0.1 thou/uL (0.0-0.7); #Lymphocytes 0.8 thou/uL (1.20-3.40); #Monocytes 0.8 thou/uL (0.11-0.59); #Neutrophils 9.8 thou/uL (1.40-6.50); %Basophils 0.2 % (0.0-1.0); %Eosinophils 0.6 % (0.0-10.0); %Monocytes 7.1 % (0.0-10.0); %Neutrophils 85.1 % (42.0-75.0); Hemoglobin 10.7 g/dL (14.0-18.0); Mean Corpuscular HGB CONC 33.6 g/dL (32.0-36.0); Mean Corpuscular Hemoglobin 30.8 pg (27.0-31.0); Mean Corpuscular Volume 91.6 fL (78.0-98.0); Mean Platelet Volume 8.9 fL (7.4-10.4); Platelet Count 213 thou/uL (130-400); RBC Distribution Width 12.8 % (11.5-14.5); Red Blood Cell (RBC) Count 3.47 mill/uL (4.70-6.10); White Blood Cell (WBC) Count 11.5 thou/uL (4.8-10.8)
[2019-12-01 05:20] LABS: Anion Gap 14 mmol/L (10-20); BUN (Urea Nitrogen) 18 mg/dL (8.4-25.7); Calc. Creatinine Clearance 89 mL/min (70-130); Calcium 8.8 mg/dL (7.8-10.44); Carbon Dioxide 29 mmol/L (23-31); Chloride 94 mmol/L (98-107); Estimated GFR-MDRD Greater than 90; Glucose 108 mg/dL (83-110); Potassium 3.2 mmol/L (3.5-5.1); Sodium 134 mmol/L (136-145)
[2019-12-01] MEDS: Amiodarone 200 MG TAB PO SCH ×2 (08:39→20:52)
[2019-12-01] MEDS: Aspirin Chewable 81 MG TAB PO SCH (08:39)
[2019-12-01] MEDS: Clopidogrel Bisulfate 75 MG TAB PO SCH (08:40)
[2019-12-01] MEDS: Metoprolol Tartrate 25 MG TAB PO SCH ×2 (08:40→20:53)
[2019-12-01] MEDS: Bisacodyl 5 MG TAB PO PRN (08:40)
[2019-12-01] MEDS: Ondansetron PF 4 MG/2 ML Vial IVP PRN ×2 (09:12→15:21)
[2019-12-01 13:48] LABS: Puncture Site ALINE
[2019-12-01 13:49] LABS: Puncture Site ALNE
[2019-12-01 13:49] LABS: Puncture Site ALINE
[2019-12-01 13:53] LABS: Puncture Site ALINE
[2019-12-01 14:04] LABS: Actual Bicarbonate (HCO3a) 21.1 mEq/L (22-28); Analyzer IN Cardio OR; Base Excess (BEa) -3.1 mEq/L (-2.0 to +3.0); CO2 Tension 34.7 mmHg (35.0-45.0); Calcium, Ionized 1.07 mmol/L (1.12-1.30); Carboxyhemoglobin (COHb) 0.6 gm% (0.0-3.0); Hemoglobin (Hb) 11.3 g/dL (14.0-18.0); O2 Tension (PaO2) 113.2 mmHg (> 70.0); Puncture Site ALINE
[2019-12-01] MEDS ORDERED: Potassium Chloride 20 MEQ TAB PO SCH (15:15)
[2019-12-01] MEDS: Atorvastatin Calcium 40 MG TAB PO SCH (20:53)
[2019-12-02] MEDS: Ondansetron PF 4 MG/2 ML Vial IVP PRN ×3 (00:27→16:26)
[2019-12-02] MEDS: Clopidogrel Bisulfate 75 MG TAB PO SCH (08:18)
[2019-12-02] MEDS: Amiodarone 200 MG TAB PO SCH ×2 (08:18→20:27)
[2019-12-02] MEDS: Metoprolol Tartrate 25 MG TAB PO SCH ×2 (08:18→20:27)
[2019-12-02] MEDS: Aspirin Chewable 81 MG TAB PO SCH (08:18)
--- NOTE | 2019-12-02 10:25 | EKG ---
Test Reason : Blood Pressure : / mmHG Vent. Rate : 096 BPM Atrial Rate : 096 BPM P-R Int : 130 ms QRS Dur : 068 ms QT Int : 314 ms P-R-T Axes : 033 021 -36 degrees QTc Int : 396 ms Poor data quality, interpretation may be adversely affected Normal sinus rhythm ST elevation consider lateral injury or acute infarct * ACUTE CA * Abnormal ECG Confirmed by MATTHEW KEVIN DO ([id number]), video effects editor PRUDENCE COFFEY ([id number]) on 12/02/2019 10:25:09 AM Referred By: Confirmed By:MATTHEW KEVIN DO
[2019-12-02] MEDS: Bisacodyl 5 MG TAB PO PRN (12:22)
[2019-12-02 12:32] LABS: #Eosinphils 0.1 thou/uL (0.0-0.7); #Lymphocytes 0.9 thou/uL (1.20-3.40); #Monocytes 0.8 thou/uL (0.11-0.59); #Neutrophils 7.9 thou/uL (1.40-6.50); %Basophils 0.2 % (0.0-1.0); %Eosinophils 0.6 % (0.0-10.0); %Lymphocytes 9.4 % (21.0-51.0); %Monocytes 7.8 % (0.0-10.0); %Neutrophils 82.1 % (42.0-75.0); Hemoglobin 11.1 g/dL (14.0-18.0); Mean Corpuscular HGB CONC 33.1 g/dL (32.0-36.0); Mean Corpuscular Hemoglobin 30.4 pg (27.0-31.0); Mean Corpuscular Volume 92.1 fL (78.0-98.0); Mean Platelet Volume 8.3 fL (7.4-10.4); Platelet Count 267 thou/uL (130-400); Red Blood Cell (RBC) Count 3.64 mill/uL (4.70-6.10); White Blood Cell (WBC) Count 9.6 thou/uL (4.8-10.8)
[2019-12-02 12:50] LABS: Anion Gap 15 mmol/L (10-20); BUN (Urea Nitrogen) 21 mg/dL (8.4-25.7); Calc. Creatinine Clearance 70 mL/min (70-130); Calcium 8.6 mg/dL (7.8-10.44); Carbon Dioxide 30 mmol/L (23-31); Chloride 92 mmol/L (98-107); Estimated GFR-MDRD 75; Glucose 121 mg/dL (83-110); Sodium 134 mmol/L (136-145)
[2019-12-02 13:00] LABS: Potassium 2.9 mmol/L (3.5-5.1)
[2019-12-02] MEDS ORDERED: Potassium Chloride 20 MEQ TAB PO SCH (13:45)
[2019-12-02] MEDS: Atorvastatin Calcium 40 MG TAB PO SCH (20:27)
[2019-12-03 04:34] LABS: #Eosinphils 0.1 thou/uL (0.0-0.7); #Lymphocytes 1.1 thou/uL (1.20-3.40); #Monocytes 0.9 thou/uL (0.11-0.59); #Neutrophils 8.5 thou/uL (1.40-6.50); %Basophils 0.3 % (0.0-1.0); %Eosinophils 1.1 % (0.0-10.0); %Lymphocytes 10.4 % (21.0-51.0); %Monocytes 8.7 % (0.0-10.0); %Neutrophils 79.4 % (42.0-75.0); Hemoglobin 11.9 g/dL (14.0-18.0); Mean Corpuscular HGB CONC 33.3 g/dL (32.0-36.0); Mean Corpuscular Hemoglobin 30.4 pg (27.0-31.0); Mean Corpuscular Volume 91.5 fL (78.0-98.0); Platelet Count 300 thou/uL (130-400); White Blood Cell (WBC) Count 10.7 thou/uL (4.8-10.8)
[2019-12-03 04:56] LABS: Anion Gap 14 mmol/L (10-20); BUN (Urea Nitrogen) 22 mg/dL (8.4-25.7); Calc. Creatinine Clearance 66 mL/min (70-130); Calcium 8.9 mg/dL (7.8-10.44); Carbon Dioxide 30 mmol/L (23-31); Chloride 93 mmol/L (98-107); Estimated GFR-MDRD 70; Glucose 114 mg/dL (83-110); Potassium 3.1 mmol/L (3.5-5.1); Sodium 134 mmol/L (136-145)
[2019-12-03] MEDS: Clopidogrel Bisulfate 75 MG TAB PO SCH (08:11)
[2019-12-03] MEDS: Amiodarone 200 MG TAB PO SCH ×2 (08:11→19:55)
[2019-12-03] MEDS: Aspirin Chewable 81 MG TAB PO SCH (08:11)
[2019-12-03] MEDS: Metoprolol Tartrate 25 MG TAB PO SCH (08:11)
[2019-12-03] MEDS ORDERED: Potassium Chloride 20 MEQ TAB PO SCH (10:15)
[2019-12-03] MEDS: Atorvastatin Calcium 40 MG TAB PO SCH (19:55)
[2019-12-04] MEDS: Clopidogrel Bisulfate 75 MG TAB PO SCH (09:01)
[2019-12-04] MEDS: Amiodarone 200 MG TAB PO SCH ×2 (09:01→20:13)
[2019-12-04] MEDS: Aspirin 81 mg Enteric Coated Tablet PO SCH (09:01)
[2019-12-04] MEDS: Metoclopramide HCl 10 MG TAB PO SCH ×3 (11:21→20:13)
[2019-12-04] MEDS: Bisacodyl 5 MG TAB PO PRN (17:15)
[2019-12-04] MEDS: Atorvastatin Calcium 40 MG TAB PO SCH (20:13)
[2019-12-05] MEDS: Metoclopramide HCl 10 MG TAB PO SCH ×2 (09:20→12:03)
[2019-12-05] MEDS: Clopidogrel Bisulfate 75 MG TAB PO SCH (09:22)
[2019-12-05] MEDS: Amiodarone 200 MG TAB PO SCH (09:22)
[2019-12-05] MEDS: Aspirin 81 mg Enteric Coated Tablet PO SCH (09:22)
[2019-12-05 16:09] VITALS: BP 113/60; TEMP 99
--- NOTE | 2019-12-05 19:21 | DIS ---
DATE OF ADMISSION: 11/25/2019 DATE OF DISCHARGE: 12/05/2019 PRINCIPAL DIAGNOSIS: Lateral ST-elevation myocardial infarction. SECONDARY DIAGNOSES: Atrial fibrillation, hypertension, diabetes, and gastroesophageal reflux. PROCEDURES PERFORMED: Emergent cardiac catheterization with bare-metal stenting of the diagonal on 11/25/2019, coronary artery bypass grafting x3 with left internal mammary artery to the distal left anterior descending and reverse greater saphenous vein graft from the aorta to the second obtuse marginal and from the aorta to the posterolateral branch of the right coronary artery on 11/27/2019. HISTORY OF PRESENT ILLNESS AND HOSPITAL COURSE: The patient is a 74-year-old man with hypertension, diabetes, and GE reflux disease that he manages in his mind with dietary manipulations and homeopathic dietary supplementation. He presented with chest pressure and shortness of breath. ST elevation in lateral leads prompted emergent cardiac catheterization, although he was found to have significant 3-vessel coronary artery disease trifurcated high diagonal that had a high-grade stenosis was identified as a culprit lesion and bare-metal stenting was performed to abort his [place]. He was loaded with 600 mg of Plavix in the school laboratory technician. Because of the severity of his remaining disease, it was opted to proceed with surgical revascularization during this hospitalization in spite of his Plavix loading. He underwent surgical revascularization and hemodynamically did well. His early postoperative course was marked by rapid atrial fibrillation that took almost a day to get under control with the use of digoxin, beta blockade, and amiodarone. Once he converted to a sinus rhythm, he had no recurrence of atrial fibrillation. Preoperatively, he had described nausea with trivial exertion and activity, in such a way that left me with the impression that this has been of longstanding perioperatively when he complained of it. He said that it had only been since being admitted to the hospital. Although this was a recent event, it predated his surgery, his atrial fibrillation and the use of digoxin and amiodarone. IV Reglan was used in an attempt to improve his symptoms and ultimately his amiodarone was cut back from 400 mg b.i.d. to 200 mg b.i.d. when simply stopping his digoxin did not seem to make much difference. He was started back on a Reglan orally every before meals and at bedtime with some improvement in his symptoms late in his hospital course. A KUB showed gas throughout his colon, but it was not distended and he did not have a large stomach, bubble, or preponderance of small bowel gas. During this time, his level of activity was very poor and he spent most of his time in bed with the lights off in the room and required considerable encouragement to do anything more than go to the bathroom and back. His level of activity is gradually improving, but is still requiring considerable encouragement. He is now being transferred to inpatient rehab. He is on Vicodin as needed for pain, on amiodarone taper currently at 200 mg p.o. b.i.d., aspirin, and Plavix. Beta blockade was stopped due to issues with blood pressure. Lipitor is at 40 mg a day. Job ID: [id number]
== END 2019-12-05 16:00 | DRG 232 ==
LOC: ERS 11:46 → CCU 12:15 → 2NO 11-26 09:44 → CCU 11-27 12:05 → 2NO 11-28 11:53
PROVIDERS: ADMIT Internal Medicine Cardiovascular Disease; ATTEND Internal Medicine Cardiovascular Disease
PROC: 02703DZ Dilation of Coronary Artery, One Artery with Intraluminal Device, Percutaneous Approach (ICD-10-PCS; 2019-11-25)
PROC: 4A023N7 Measurement of Cardiac Sampling and Pressure, Left Heart, Percutaneous Approach (ICD-10-PCS; 2019-11-25)
PROC: B2111ZZ Fluoroscopy of Multiple Coronary Arteries using Low Osmolar Contrast (ICD-10-PCS; 2019-11-25)
PROC: B2151ZZ Fluoroscopy of Left Heart using Low Osmolar Contrast (ICD-10-PCS; 2019-11-25)
PROC: 02100Z9 Bypass Coronary Artery, One Artery from Left Internal Mammary, Open Approach (ICD-10-PCS; principal; 2019-11-27)
PROC: 06BQ3ZZ Excision of Left Saphenous Vein, Percutaneous Approach (ICD-10-PCS; 2019-11-27)
PROC: 021109W Bypass Coronary Artery, Two Arteries from Aorta with Autologous Venous Tissue, Open Approach (ICD-10-PCS; 2019-11-27)
PROC: 5A1221Z Performance of Cardiac Output, Continuous (ICD-10-PCS; 2019-11-27)
PROC: B547ZZA Ultrasonography of Left Subclavian Vein, Guidance (ICD-10-PCS; 2019-11-27)
PROC: 30233R1 Transfusion of Nonautologous Platelets into Peripheral Vein, Percutaneous Approach (ICD-10-PCS; 2019-11-27)
DX: I21.29 ST elevation (STEMI) myocardial infarction involving other sites (principal); I10 Essential (primary) hypertension; E78.00 Pure hypercholesterolemia, unspecified; E10.9 Type 1 diabetes mellitus without complications; E78.5 Hyperlipidemia, unspecified; K21.9 Gastro-esophageal reflux disease without esophagitis; I25.10 Atherosclerotic heart disease of native coronary artery without angina pectoris; Z79.899 Other long term (current) drug therapy; Z91.14 Patient's other noncompliance with medication regimen; Z88.6 Allergy status to analgesic agent; Z87.891 Personal history of nicotine dependence; I25.2 Old myocardial infarction; R11.0 Nausea
CPT/HCPCS: 36415; 36416; 36430; 71045; 74018; 80048; 80053; 80061; 80076; 82550; 82553; 82805; 83036; 83690; 83735; 84443; 84484; 85025; 85347; 85610; 85730; 86850; 86900; 86901; 90471; 90670; 92928; 93005; 93010; 93458; 93798; 94002; 96374; C1725; C1769; C1876; C1887; G0009; J0282; J0690; J1160; J1642; J1644; J1815; J1885; J1940; J2001; J2250; J2270; J2405; J2440; J2704; J2720; J2765; J3010; J3101; J3370; J3475; J3480; J3490; J7050; J7070; P9035; P9045; Q9967; S0017; S0028

== ENCOUNTER 2020-07-15 12:58 | Outpatient (CLI) | payer OTHER | END 2020-07-15 12:59 | disposition home or self-care (01) | LOC: ULT 12:58 | PROVIDERS: ATTEND Orthopaedic Surgery | DX: I25.9 Chronic ischemic heart disease, unspecified (principal); I08.1 Rheumatic disorders of both mitral and tricuspid valves | CPT/HCPCS: 93306 ==

== ENCOUNTER 2022-03-17 11:57 | Inpatient (IN) | payer OTHER ==
[2022-03-17 13:01] LABS: #Lymphocytes 0.7 thou/uL (1.20-3.40); #Monocytes 0.9 thou/uL (0.11-0.59); %Basophils 0.3 % (0.0-1.0); %Eosinophils 0.1 % (0.0-10.0); %Lymphocytes 5.9 % (21.0-51.0); %Neutrophils 85.6 % (42.0-75.0); Hemoglobin 14.3 g/dL (14.0-18.0); Mean Corpuscular HGB CONC 32.4 g/dL (32.0-36.0); Mean Corpuscular Hemoglobin 30.3 pg (27.0-31.0); Mean Corpuscular Volume 93.6 fL (78.0-98.0); Mean Platelet Volume 9.2 fL (7.4-10.4); Platelet Count 125 thou/uL (130-400); Red Blood Cell (RBC) Count 4.71 mill/uL (4.70-6.10); White Blood Cell (WBC) Count 11.7 thou/uL (4.8-10.8)
[2022-03-17 13:32] LABS: ALT (SGPT) 31 U/L (8-55); AST (SGOT) 89 U/L (5-34); Albumin 3.9 g/dL (3.4-4.8); Alkaline Phosphatase 92 U/L (40-110); Anion Gap 13 mmol/L (10-20); BUN (Urea Nitrogen) 27 mg/dL (8.4-25.7); Calc. Creatinine Clearance 0 mL/min (70-130); Calcium 9.3 mg/dL (7.8-10.44); Carbon Dioxide 27 mmol/L (23-31); Chloride 104 mmol/L (98-107); Estimated GFR 57; Globulin 2.8 g/dL (2.4-3.5); Glucose 118 mg/dL (83-110); Potassium 4.3 mmol/L (3.5-5.1); Protein, Total 6.7 g/dL (5.8-8.1); Sodium 140 mmol/L (136-145)
[2022-03-17] MEDS ORDERED: Enoxaparin Sodium 80 MG/0.8 ML SYRINGE ONE (13:57)
[2022-03-17 14:03] LABS: CKMB 31.2 ng/mL (0-6.6)
[2022-03-17] MEDS ORDERED: Nitroglycerin 2% Ointment 1 INCH/1 GM Packet ONE (16:08)
[2022-03-17] MEDS ORDERED: Aspirin Chewable 81 MG TAB PO SCH (16:15)
[2022-03-17 17:18] LABS: CKMB 31.5 ng/mL (0-6.6)
[2022-03-17] MEDS: Carvedilol 3.125 MG TAB PO SCH (18:31)
[2022-03-17 19:36] LABS: Troponin I 14.167 ng/mL (< 0.028)
[2022-03-17] MEDS: Communication Order-Pharmacy FS SCH (20:58)
[2022-03-17] MEDS ORDERED: Enoxaparin Sodium 80 MG/0.8 ML SYRINGE SC SCH (21:00)
[2022-03-18] MEDS ORDERED: Sodium Chloride 0.9% 1,000 ML IV SCH ×2 (06:00→14:08)
[2022-03-18 06:41] LABS: #Lymphocytes 1.2 thou/uL (1.20-3.40); #Neutrophils 8.2 thou/uL (1.40-6.50); %Basophils 0.1 % (0.0-1.0); %Eosinophils 0.2 % (0.0-10.0); %Lymphocytes 11.3 % (21.0-51.0); %Monocytes 9.3 % (0.0-10.0); Hemoglobin 12.8 g/dL (14.0-18.0); Mean Corpuscular HGB CONC 34.4 g/dL (32.0-36.0); Mean Corpuscular Hemoglobin 31.8 pg (27.0-31.0); Mean Corpuscular Volume 92.4 fL (78.0-98.0); Platelet Count 109 thou/uL (130-400); Red Blood Cell (RBC) Count 4.02 mill/uL (4.70-6.10); White Blood Cell (WBC) Count 10.4 thou/uL (4.8-10.8)
[2022-03-18 06:58] LABS: Anion Gap 11 mmol/L (10-20); BUN (Urea Nitrogen) 29 mg/dL (8.4-25.7); Calc. Creatinine Clearance 68 mL/min (70-130); Calcium 8.6 mg/dL (7.8-10.44); Carbon Dioxide 26 mmol/L (23-31); Cardiac Risk 2.7 (Less than 4.5); Chloride 108 mmol/L (98-107); Cholesterol 104 mg/dl (< 200 Desired); Estimated GFR 81; Glucose 107 mg/dL (83-110); HDL Cholesterol 38 mg/dL (>60 Neg Risk); LDL Cholesterol, Calculated 48 mg/dL; Potassium 3.6 mmol/L (3.5-5.1); Sodium 141 mmol/L (136-145); Triglycerides 88 mg/dL (Less than 150)
[2022-03-18] MEDS: Aspirin Chewable 81 MG TAB PO SCH (09:44)
[2022-03-18] MEDS: Carvedilol 3.125 MG TAB PO SCH (09:44)
[2022-03-18] MEDS ORDERED: Communication Order-Pharmacy FS SCH (11:00)
[2022-03-18] MEDS ORDERED: Lidocaine 1% (PF) 30 ML VIAL ONE ×2 (11:13→23:54)
[2022-03-18] MEDS ORDERED: Heparin 10,000 UNITS/ 10 ML VIAL ONE ×2 (11:13→13:13)
[2022-03-18] MEDS ORDERED: Fentanyl 100 MCG/2 ML VIAL ONE (11:55)
[2022-03-18] MEDS ORDERED: Midazolam HCl 2 mg/2 ml Vial ONE (11:55)
[2022-03-18] MEDS ORDERED: Bivalirudin 250 MG VIAL ONE (12:49)
[2022-03-18] MEDS ORDERED: Adenosine 6 MG/2 ML VIAL ONE (13:00)
[2022-03-18] MEDS ORDERED: Aggrastat 12.5 MG/250 ML 250 ML ONE (13:13)
[2022-03-18] MEDS ORDERED: Atropine Sulfate 1 mg/10 ml Syringe ONE (13:13)
[2022-03-18] MEDS ORDERED: Clopidogrel Bisulfate 300 MG TAB ONE (13:13)
[2022-03-18] MEDS ORDERED: Nitroglycerin 100MG/250ML BOT 250 ML ONE (13:14)
[2022-03-18] MEDS ORDERED: Nitroglycerin 0.4 MG TAB (25 Tab Bottle) SL PRN (14:06)
[2022-03-18] MEDS ORDERED: Aggrastat 12.5 MG/250 ML 250 ML IVPB SCH (14:15)
[2022-03-18] MEDS ORDERED: Potassium Chloride 20 MEQ TAB PO SCH (14:30)
[2022-03-18 16:12] LABS: Magnesium 2.1 mg/dL (1.6-2.6)
[2022-03-18] MEDS: Communication Order-Pharmacy FS SCH (16:48)
[2022-03-18] MEDS ORDERED: Ondansetron PF 4 MG/2 ML Vial ONE (18:17)
[2022-03-18] MEDS: Ondansetron PF 4 MG/2 ML Vial IVP PRN (18:20)
[2022-03-18] MEDS ORDERED: traMADol HCl 50 MG TAB PO PRN (18:22)
[2022-03-18] MEDS: Atorvastatin Calcium 40 MG TAB PO SCH (19:50)
[2022-03-18] MEDS: Morphine 2 MG/ML VIAL SLOW IVP PRN (21:29)
[2022-03-19] MEDS ORDERED: Lidocaine 1% (PF) 30 ML VIAL ONE ×3 (00:40→17:47)
[2022-03-19] MEDS ORDERED: Atropine Sulfate 1 mg/1 ml Vial ONE (00:41)
[2022-03-19] MEDS ORDERED: Atropine Sulfate 1 mg/10 ml Syringe ONE (00:41)
[2022-03-19 05:49] LABS: ALT (SGPT) 26 U/L (8-55); AST (SGOT) 54 U/L (5-34); Albumin 3.1 g/dL (3.4-4.8); Alkaline Phosphatase 74 U/L (40-110); Anion Gap 11 mmol/L (10-20); BUN (Urea Nitrogen) 28 mg/dL (8.4-25.7); Bilirubin, Total 1.2 mg/dL (0.2-1.2); Calc. Creatinine Clearance 81 mL/min (70-130); Carbon Dioxide 23 mmol/L (23-31); Chloride 111 mmol/L (98-107); Estimated GFR 90; Globulin 2.6 g/dL (2.4-3.5); Glucose 113 mg/dL (83-110); Potassium 4.3 mmol/L (3.5-5.1); Protein, Total 5.7 g/dL (5.8-8.1); Sodium 141 mmol/L (136-145)
[2022-03-19] MEDS: Morphine 2 MG/ML VIAL SLOW IVP PRN (05:54)
[2022-03-19 06:23] LABS: #Lymphocytes 0.6 thou/uL (1.20-3.40); #Neutrophils 9.2 thou/uL (1.40-6.50); %Eosinophils 0.2 % (0.0-10.0); %Lymphocytes 5.6 % (21.0-51.0); %Monocytes 9.1 % (0.0-10.0); %Neutrophils 85.1 % (42.0-75.0); Hemoglobin 12.2 g/dL (14.0-18.0); Mean Corpuscular HGB CONC 32.5 g/dL (32.0-36.0); Mean Corpuscular Hemoglobin 30.4 pg (27.0-31.0); Mean Corpuscular Volume 93.7 fL (78.0-98.0); Mean Platelet Volume 10.5 fL (7.4-10.4); Platelet Count 104 thou/uL (130-400); RBC Distribution Width 13.1 % (11.5-14.5); Red Blood Cell (RBC) Count 4.02 mill/uL (4.70-6.10); White Blood Cell (WBC) Count 10.8 thou/uL (4.8-10.8)
[2022-03-19] MEDS ORDERED: Fentanyl 100 MCG/2 ML VIAL ONE ×2 (06:34→08:27)
[2022-03-19 06:49] LABS: Actual Bicarbonate (HCO3a) 14.8 mEq/L (22-28); Base Excess (BEa) -12.3 mEq/L (-2.0 to +3.0); Carboxyhemoglobin (COHb) 0.4 gm% (0.0-3.0); Hemoglobin (Hb) 13.5 g/dL (14.0-18.0); O2 Tension (PaO2), arterial 70.9 mmHg (> 70.0)
[2022-03-19 06:54] LABS: pH, Arterial 7.21 (7.35-7.45)
[2022-03-19 06:55] LABS: Puncture Site LBA
[2022-03-19] MEDS ORDERED: Fentanyl 100 MCG/2 ML VIAL SLOW IVP SCH (07:00)
[2022-03-19] MEDS ORDERED: Midazolam HCl 2 mg/2 ml Vial SLOW IVP PRN (07:11)
[2022-03-19] MEDS ORDERED: Morphine 4 MG/ML VIAL SLOW IVP PRN (07:15)
[2022-03-19] MEDS ORDERED: Propofol BOLUS 1,000 MG/100 ML VIAL IV PRN (07:15)
[2022-03-19] MEDS ORDERED: Fentanyl BOLUS 250 ML IVPB PRN (07:15)
[2022-03-19] MEDS ORDERED: Fentanyl CADD 100 ML IV SCH (07:15)
[2022-03-19] MEDS ORDERED: Ventilator Sedation Protocol 1 EACH FS SCH (07:15)
[2022-03-19] MEDS ORDERED: NOREPINEPHRINE 8 MG/250 ML-D5W 250 ML IVPB SCH (07:15)
[2022-03-19] MEDS ORDERED: Propofol 1,000 MG/100 ML VIAL IV PRN (07:15)
[2022-03-19] MEDS ORDERED: Midazolam HCl 2 mg/2 ml Vial ONE (07:38)
[2022-03-19] MEDS ORDERED: CEFAZOLIN 1 GM VIAL ONE (08:03)
[2022-03-19] MEDS ORDERED: DOPamine 400 MG/D5W 250 ML 250 ML ONE ×2 (08:04→17:19)
[2022-03-19] MEDS: Clopidogrel Bisulfate 75 MG TAB PO SCH (10:47)
[2022-03-19] MEDS: Aspirin Chewable 81 MG TAB PO SCH (10:47)
[2022-03-19 12:17] LABS: Actual Bicarbonate (HCO3a) 20.6 mEq/L (22-28); CO2 Tension 32.8 mmHg (35.0-45.0); Calcium, Ionized (arterial) 1.13 mmol/L (1.12-1.30); Carboxyhemoglobin (COHb) 0.1 gm% (0.0-3.0); Hemoglobin (Hb) 13.6 g/dL (14.0-18.0); Potassium - ABG Lab 4.02 mmol/L (3.70-5.30); pH, Arterial 7.42 (7.35-7.45)
[2022-03-19 12:18] LABS: O2 Tension (PaO2), arterial 58.9 mmHg (> 70.0); Puncture Site LBA
[2022-03-19] MEDS ORDERED: Fentanyl CADD 100 ML ONE (12:25)
[2022-03-19] MEDS ORDERED: EPINEPHrine 1 MG/10 ML Abboject SYRINGE ONE (17:07)
[2022-03-19] MEDS ORDERED: NOREPINEPHRINE 8 MG/250 ML-D5W 0 ML ONE (17:07)
[2022-03-19] MEDS ORDERED: CEFAZOLIN 2 GM VIAL ONE (17:29)
[2022-03-19] MEDS: DOPamine 400 MG/D5W 250 ML 250 ML IVPB SCH (17:38)
[2022-03-19] MEDS ORDERED: CEFAZOLIN 2 GM in Sodium Chloride 0.9% 100 ML IVPB SCH (17:45)
[2022-03-19] MEDS ORDERED: methylPREDNISolone Sod Succ 40 MG VIAL IVP SCH (18:15)
[2022-03-19] MEDS: Atorvastatin Calcium 40 MG TAB PO SCH (21:08)
[2022-03-20] MEDS ORDERED: DOPamine 400 MG/D5W 250 ML 250 ML ONE ×2 (00:16→17:33)
[2022-03-20] MEDS: DOPamine 400 MG/D5W 250 ML 250 ML IVPB SCH ×2 (00:18→07:45)
[2022-03-20 04:37] LABS: #Lymphocytes 0.3 thou/uL (1.20-3.40); #Monocytes 0.4 thou/uL (0.11-0.59); #Neutrophils 15.2 thou/uL (1.40-6.50); %Eosinophils 0.1 % (0.0-10.0); %Lymphocytes 1.6 % (21.0-51.0); %Monocytes 2.8 % (0.0-10.0); %Neutrophils 95.5 % (42.0-75.0); Mean Corpuscular HGB CONC 32.4 g/dL (32.0-36.0); Mean Corpuscular Hemoglobin 30.5 pg (27.0-31.0); Mean Corpuscular Volume 94.2 fL (78.0-98.0); Mean Platelet Volume 10.3 fL (7.4-10.4); Platelet Count 129 thou/uL (130-400); Red Blood Cell (RBC) Count 4.59 mill/uL (4.70-6.10)
[2022-03-20 05:03] LABS: ALT (SGPT) 30 U/L (8-55); AST (SGOT) 64 U/L (5-34); Albumin 3.4 g/dL (3.4-4.8); Alkaline Phosphatase 85 U/L (40-110); Anion Gap 14 mmol/L (10-20); BUN (Urea Nitrogen) 34 mg/dL (8.4-25.7); Bilirubin, Total 0.8 mg/dL (0.2-1.2); Calc. Creatinine Clearance 53 mL/min (70-130); Calcium 8.5 mg/dL (7.8-10.44); Carbon Dioxide 23 mmol/L (23-31); Chloride 108 mmol/L (98-107); Estimated GFR 62; Globulin 3.1 g/dL (2.4-3.5); Glucose 176 mg/dL (83-110); Magnesium 2.3 mg/dL (1.6-2.6); Potassium 4.3 mmol/L (3.5-5.1); Protein, Total 6.5 g/dL (5.8-8.1); Sodium 141 mmol/L (136-145)
[2022-03-20 07:24] LABS: Actual Bicarbonate (HCO3a) 22.1 mEq/L (22-28); Base Excess (BEa) -0.8 mEq/L (-2.0 to +3.0); CO2 Tension 31.9 mmHg (35.0-45.0); Calcium, Ionized (arterial) 1.14 mmol/L (1.12-1.30); Carboxyhemoglobin (COHb) 0.1 gm% (0.0-3.0); Hemoglobin (Hb) 14.1 g/dL (14.0-18.0); O2 Tension (PaO2), arterial 80.7 mmHg (> 70.0); Potassium - ABG Lab 4.15 mmol/L (3.70-5.30); pH, Arterial 7.46 (7.35-7.45)
[2022-03-20 07:26] LABS: ALV-art Gradient 235.925 mmHg (0-20); Puncture Site RBA
[2022-03-20] MEDS: DOPamine 400 MG/D5W 250 ML 250 ML ONE ×2 (07:42→07:45)
[2022-03-20] MEDS: Aspirin Chewable 81 MG TAB PO SCH (10:42)
[2022-03-20] MEDS: Clopidogrel Bisulfate 75 MG TAB PO SCH (10:42)
[2022-03-20] MEDS: Ondansetron PF 4 MG/2 ML Vial IVP PRN (14:10)
[2022-03-20] MEDS: Atorvastatin Calcium 40 MG TAB PO SCH (20:14)
[2022-03-20] MEDS ORDERED: methylPREDNISolone Sod Succ 40 MG VIAL IVP SCH (21:00)
[2022-03-21 04:56] LABS: #Lymphocytes 0.7 thou/uL (1.20-3.40); #Monocytes 0.8 thou/uL (0.11-0.59); #Neutrophils 10.4 thou/uL (1.40-6.50); %Basophils 0.3 % (0.0-1.0); %Eosinophils 0.1 % (0.0-10.0); %Lymphocytes 5.7 % (21.0-51.0); %Monocytes 6.5 % (0.0-10.0); %Neutrophils 87.5 % (42.0-75.0); Hemoglobin 11.8 g/dL (14.0-18.0); Mean Corpuscular HGB CONC 32.7 g/dL (32.0-36.0); Mean Corpuscular Hemoglobin 30.7 pg (27.0-31.0); Mean Corpuscular Volume 93.7 fL (78.0-98.0); Mean Platelet Volume 9.9 fL (7.4-10.4); Platelet Count 101 thou/uL (130-400); Red Blood Cell (RBC) Count 3.86 mill/uL (4.70-6.10); White Blood Cell (WBC) Count 11.9 thou/uL (4.8-10.8)
[2022-03-21 05:19] LABS: Anion Gap 12 mmol/L (10-20); BUN (Urea Nitrogen) 33 mg/dL (8.4-25.7); Calc. Creatinine Clearance 72 mL/min (70-130); Calcium 8.1 mg/dL (7.8-10.44); Carbon Dioxide 25 mmol/L (23-31); Chloride 106 mmol/L (98-107); Estimated GFR 84; Glucose 121 mg/dL (83-110); Magnesium 2.3 mg/dL (1.6-2.6); Potassium 3.7 mmol/L (3.5-5.1); Sodium 139 mmol/L (136-145)
[2022-03-21] MEDS ORDERED: Potassium Chloride 20 MEQ TAB PO SCH (07:00)
[2022-03-21] MEDS: Enoxaparin Sodium 40 MG/0.4 ML SYRINGE SC SCH (08:33)
[2022-03-21] MEDS: Aspirin Chewable 81 MG TAB PO SCH (08:33)
[2022-03-21] MEDS: Clopidogrel Bisulfate 75 MG TAB PO SCH (08:33)
[2022-03-21] MEDS: Atorvastatin Calcium 40 MG TAB PO SCH (20:31)
[2022-03-22 04:34] LABS: #Eosinphils 0.1 thou/uL (0.0-0.7); #Lymphocytes 0.9 thou/uL (1.20-3.40); #Monocytes 0.5 thou/uL (0.11-0.59); #Neutrophils 6.7 thou/uL (1.40-6.50); %Basophils 0.3 % (0.0-1.0); %Eosinophils 0.7 % (0.0-10.0); %Lymphocytes 11.4 % (21.0-51.0); %Monocytes 6.6 % (0.0-10.0); Hemoglobin 11.5 g/dL (14.0-18.0); Mean Corpuscular HGB CONC 33.2 g/dL (32.0-36.0); Mean Corpuscular Hemoglobin 31.1 pg (27.0-31.0); Mean Corpuscular Volume 93.5 fL (78.0-98.0); Mean Platelet Volume 9.6 fL (7.4-10.4); Platelet Count 100 thou/uL (130-400); Red Blood Cell (RBC) Count 3.69 mill/uL (4.70-6.10); White Blood Cell (WBC) Count 8.2 thou/uL (4.8-10.8)
[2022-03-22 04:42] LABS: Anion Gap 12 mmol/L (10-20); BUN (Urea Nitrogen) 27 mg/dL (8.4-25.7); Calc. Creatinine Clearance 77 mL/min (70-130); Calcium 7.9 mg/dL (7.8-10.44); Carbon Dioxide 24 mmol/L (23-31); Chloride 106 mmol/L (98-107); Estimated GFR 88; Glucose 99 mg/dL (83-110); Magnesium 2.3 mg/dL (1.6-2.6); Potassium 3.9 mmol/L (3.5-5.1); Sodium 138 mmol/L (136-145)
[2022-03-22] MEDS: Ondansetron PF 4 MG/2 ML Vial IVP PRN (06:43)
[2022-03-22] MEDS ORDERED: Cepastat Lozenges 1 LOZ PO PRN (07:08)
[2022-03-22] MEDS: Aspirin Chewable 81 MG TAB PO SCH (09:06)
[2022-03-22] MEDS: Enoxaparin Sodium 40 MG/0.4 ML SYRINGE SC SCH (09:06)
[2022-03-22] MEDS: Docusate 100 MG CAP PO SCH (09:06)
[2022-03-22] MEDS: Clopidogrel Bisulfate 75 MG TAB PO SCH (09:06)
[2022-03-22] MEDS: Atorvastatin Calcium 40 MG TAB PO SCH (21:33)
[2022-03-23 04:39] LABS: #Eosinphils 0.2 thou/uL (0.0-0.7); #Lymphocytes 1.1 thou/uL (1.20-3.40); #Monocytes 0.6 thou/uL (0.11-0.59); #Neutrophils 5.6 thou/uL (1.40-6.50); %Basophils 0.2 % (0.0-1.0); %Eosinophils 2.4 % (0.0-10.0); %Lymphocytes 14.4 % (21.0-51.0); %Monocytes 8.1 % (0.0-10.0); %Neutrophils 74.9 % (42.0-75.0); Hemoglobin 11.6 g/dL (14.0-18.0); Mean Corpuscular HGB CONC 34.5 g/dL (32.0-36.0); Mean Corpuscular Hemoglobin 32.3 pg (27.0-31.0); Mean Corpuscular Volume 93.6 fL (78.0-98.0); Mean Platelet Volume 9.9 fL (7.4-10.4); Platelet Count 116 thou/uL (130-400); RBC Distribution Width 13.1 % (11.5-14.5); Red Blood Cell (RBC) Count 3.59 mill/uL (4.70-6.10); White Blood Cell (WBC) Count 7.5 thou/uL (4.8-10.8)
[2022-03-23 05:01] LABS: Anion Gap 13 mmol/L (10-20); BUN (Urea Nitrogen) 20 mg/dL (8.4-25.7); Calc. Creatinine Clearance 81 mL/min (70-130); Carbon Dioxide 24 mmol/L (23-31); Chloride 106 mmol/L (98-107); Estimated GFR 89; Glucose 88 mg/dL (83-110); Magnesium 2.2 mg/dL (1.6-2.6); Potassium 4.1 mmol/L (3.5-5.1); Sodium 139 mmol/L (136-145)
[2022-03-23] MEDS: Aspirin Chewable 81 MG TAB PO SCH (09:55)
[2022-03-23] MEDS: Clopidogrel Bisulfate 75 MG TAB PO SCH (09:55)
[2022-03-23] MEDS: Enoxaparin Sodium 40 MG/0.4 ML SYRINGE SC SCH (09:56)
[2022-03-23] MEDS ORDERED: Carvedilol 3.125 MG TAB PO SCH (10:30)
[2022-03-23] MEDS: Docusate 100 MG CAP PO SCH (17:51)
[2022-03-23] MEDS: Atorvastatin Calcium 40 MG TAB PO SCH (20:17)
[2022-03-23] MEDS: Carvedilol 3.125 MG TAB PO SCH (20:17)
[2022-03-24 04:24] LABS: #Eosinphils 0.3 thou/uL (0.0-0.7); #Lymphocytes 1.2 thou/uL (1.20-3.40); #Monocytes 0.7 thou/uL (0.11-0.59); #Neutrophils 6.9 thou/uL (1.40-6.50); %Basophils 0.1 % (0.0-1.0); %Eosinophils 3.7 % (0.0-10.0); %Lymphocytes 13.3 % (21.0-51.0); Hemoglobin 11.8 g/dL (14.0-18.0); Mean Corpuscular HGB CONC 32.8 g/dL (32.0-36.0); Mean Corpuscular Hemoglobin 30.7 pg (27.0-31.0); Mean Corpuscular Volume 93.7 fL (78.0-98.0); Platelet Count 138 thou/uL (130-400); Red Blood Cell (RBC) Count 3.84 mill/uL (4.70-6.10); White Blood Cell (WBC) Count 9.2 thou/uL (4.8-10.8)
[2022-03-24 05:28] LABS: Anion Gap 10 mmol/L (10-20); BUN (Urea Nitrogen) 18 mg/dL (8.4-25.7); Calc. Creatinine Clearance 82 mL/min (70-130); Calcium 7.9 mg/dL (7.8-10.44); Carbon Dioxide 24 mmol/L (23-31); Chloride 107 mmol/L (98-107); Estimated GFR 90; Glucose 86 mg/dL (83-110); Sodium 137 mmol/L (136-145)
[2022-03-24] MEDS: Aspirin Chewable 81 MG TAB PO SCH (08:12)
[2022-03-24] MEDS: Clopidogrel Bisulfate 75 MG TAB PO SCH (08:13)
[2022-03-24] MEDS: Docusate 100 MG CAP PO SCH (08:13)
[2022-03-24] MEDS: Enoxaparin Sodium 40 MG/0.4 ML SYRINGE SC SCH (08:13)
[2022-03-24] MEDS: Carvedilol 3.125 MG TAB PO SCH ×2 (16:51→21:16)
[2022-03-24] MEDS: Atorvastatin Calcium 40 MG TAB PO SCH (21:16)
[2022-03-25 04:29] LABS: #Eosinphils 0.3 thou/uL (0.0-0.7); #Lymphocytes 1.4 thou/uL (1.20-3.40); #Monocytes 0.8 thou/uL (0.11-0.59); #Neutrophils 7.7 thou/uL (1.40-6.50); %Eosinophils 2.9 % (0.0-10.0); %Lymphocytes 13.8 % (21.0-51.0); %Monocytes 8.2 % (0.0-10.0); %Neutrophils 75.2 % (42.0-75.0); Hemoglobin 13.5 g/dL (14.0-18.0); Mean Corpuscular HGB CONC 32.7 g/dL (32.0-36.0); Mean Corpuscular Hemoglobin 30.8 pg (27.0-31.0); Mean Corpuscular Volume 94.2 fL (78.0-98.0); Mean Platelet Volume 8.6 fL (7.4-10.4); Platelet Count 179 thou/uL (130-400); RBC Distribution Width 13.1 % (11.5-14.5); Red Blood Cell (RBC) Count 4.39 mill/uL (4.70-6.10); White Blood Cell (WBC) Count 10.2 thou/uL (4.8-10.8)
[2022-03-25 04:56] LABS: Anion Gap 14 mmol/L (10-20); BUN (Urea Nitrogen) 16 mg/dL (8.4-25.7); Calc. Creatinine Clearance 77 mL/min (70-130); Calcium 8.6 mg/dL (7.8-10.44); Carbon Dioxide 24 mmol/L (23-31); Chloride 105 mmol/L (98-107); Estimated GFR 88; Glucose 90 mg/dL (83-110); Potassium 3.9 mmol/L (3.5-5.1); Sodium 139 mmol/L (136-145)
[2022-03-25] MEDS: Carvedilol 3.125 MG TAB PO SCH ×2 (09:22→21:12)
[2022-03-25] MEDS: Aspirin Chewable 81 MG TAB PO SCH (09:22)
[2022-03-25] MEDS: Docusate 100 MG CAP PO SCH (09:22)
[2022-03-25] MEDS: Clopidogrel Bisulfate 75 MG TAB PO SCH (09:22)
[2022-03-25] MEDS: Enoxaparin Sodium 40 MG/0.4 ML SYRINGE SC SCH (09:22)
[2022-03-25] MEDS ORDERED: Sodium Chloride 0.9% 500 ML IV SCH ×2 (10:15→17:45)
[2022-03-25 10:27] VITALS: BMI 30.4
[2022-03-25] MEDS: Atorvastatin Calcium 40 MG TAB PO SCH (21:12)
[2022-03-26] MEDS: Docusate 100 MG CAP PO SCH (09:22)
[2022-03-26] MEDS: Carvedilol 3.125 MG TAB PO SCH (09:22)
[2022-03-26] MEDS: Aspirin Chewable 81 MG TAB PO SCH (09:22)
[2022-03-26] MEDS: Enoxaparin Sodium 40 MG/0.4 ML SYRINGE SC SCH (09:22)
[2022-03-26] MEDS: Clopidogrel Bisulfate 75 MG TAB PO SCH (09:22)
[2022-03-26 12:28] VITALS: TEMP 98.3
[2022-03-26 13:47] VITALS: BP 96/60
== END 2022-03-26 15:50 | disposition home health service (06) | DRG 246 ==
LOC: ERS 11:57 → 2NO 14:39 → CCU 03-18 13:06 → 2NO 03-24 15:12
PROVIDERS: ADMIT Hospitalist; ATTEND Internal Medicine
PROC: 027034Z Dilation of Coronary Artery, One Artery with Drug-eluting Intraluminal Device, Percutaneous Approach (ICD-10-PCS; principal; 2022-03-18)
PROC: 02703ZZ Dilation of Coronary Artery, One Artery, Percutaneous Approach (ICD-10-PCS; 2022-03-18)
PROC: 02C03ZZ Extirpation of Matter from Coronary Artery, One Artery, Percutaneous Approach (ICD-10-PCS; 2022-03-18)
PROC: 4A023N7 Measurement of Cardiac Sampling and Pressure, Left Heart, Percutaneous Approach (ICD-10-PCS; 2022-03-18)
PROC: B2111ZZ Fluoroscopy of Multiple Coronary Arteries using Low Osmolar Contrast (ICD-10-PCS; 2022-03-18)
PROC: B2131ZZ Fluoroscopy of Multiple Coronary Artery Bypass Grafts using Low Osmolar Contrast (ICD-10-PCS; 2022-03-18)
PROC: B2151ZZ Fluoroscopy of Left Heart using Low Osmolar Contrast (ICD-10-PCS; 2022-03-18)
PROC: 5A1223Z Performance of Cardiac Pacing, Continuous (ICD-10-PCS; 2022-03-19)
PROC: 06HY33Z Insertion of Infusion Device into Lower Vein, Percutaneous Approach (ICD-10-PCS; 2022-03-19)
PROC: 5A1945Z Respiratory Ventilation, 24-96 Consecutive Hours (ICD-10-PCS; 2022-03-19)
PROC: 0BH18EZ Insertion of Endotracheal Airway into Trachea, Via Natural or Artificial Opening Endoscopic (ICD-10-PCS; 2022-03-19)
PROC: 5A1223Z Performance of Cardiac Pacing, Continuous (ICD-10-PCS; 2022-03-19)
PROC: 02HK3JZ Insertion of Pacemaker Lead into Right Ventricle, Percutaneous Approach (ICD-10-PCS; 2022-03-19)
DX: I21.4 Non-ST elevation (NSTEMI) myocardial infarction (principal); J96.01 Acute respiratory failure with hypoxia; I50.32 Chronic diastolic (congestive) heart failure; I44.2 Atrioventricular block, complete; E78.5 Hyperlipidemia, unspecified; E78.00 Pure hypercholesterolemia, unspecified; K21.9 Gastro-esophageal reflux disease without esophagitis; F17.210 Nicotine dependence, cigarettes, uncomplicated; I11.0 Hypertensive heart disease with heart failure; I25.708 Atherosclerosis of coronary artery bypass graft(s), unspecified, with other forms of angina pectoris; I48.0 Paroxysmal atrial fibrillation; I25.5 Ischemic cardiomyopathy; E11.69 Type 2 diabetes mellitus with other specified complication; I25.2 Old myocardial infarction; Z95.1 Presence of aortocoronary bypass graft; Z79.82 Long term (current) use of aspirin; Z79.899 Other long term (current) drug therapy; Z20.822 Contact with and (suspected) exposure to COVID-19
CPT/HCPCS: 33210; 33216; 36415; 36416; 36556; 36600; 71045; 80048; 80053; 80061; 82553; 82805; 83036; 83735; 84443; 84484; 85025; 85347; 92921; 92928; 92933; 93005; 93010; 93306; 93459; 93798; 94002; 94003; 94640; 94760; 96372; 97139; 99152; 99153; C1751; C1757; C1760; C1769; C1894; C1898; C9600; C9602; J0153; J0461; J0583; J0690; J1265; J1644; J1650; J2001; J2250; J2270; J2405; J2920; J3010; J3246; J7030; J7050; J7620; U0003; U0005